=== PATIENT | male | born 1985 | race African-American/Black ===

== ENCOUNTER 2021-10-04 09:52 | Inpatient (IN) | payer MEDICARE ==
[~2021-10-04 09:52] MED LIST: Iopamidol 370 76% 100 ML VIAL ONE
[2021-10-04] MEDS ORDERED: Boostrix 0.5 ML (Tdap) VIAL ONE (09:56)
[2021-10-04 10:08] LABS: #Basophils 0.1 thou/uL (0.0-0.2); #Eosinphils 0.1 thou/uL (0.0-0.7); #Lymphocytes 1.8 thou/uL (1.20-3.40); #Monocytes 0.2 thou/uL (0.11-0.59); #Neutrophils 9.2 thou/uL (1.40-6.50); %Eosinophils 0.8 % (0.0-10.0); %Lymphocytes 16.1 % (21.0-51.0); %Monocytes 1.7 % (0.0-10.0); %Neutrophils 80.3 % (42.0-75.0); Hemoglobin 16.9 g/dL (14.0-18.0); Mean Corpuscular HGB CONC 32.4 g/dL (32.0-36.0); Mean Corpuscular Hemoglobin 32.7 pg (27.0-31.0); Mean Platelet Volume 7.5 fL (7.4-10.4); Platelet Count 235 thou/uL (130-400); RBC Distribution Width 12.3 % (11.5-14.5); Red Blood Cell (RBC) Count 5.16 mill/uL (4.70-6.10); White Blood Cell (WBC) Count 11.4 thou/uL (4.8-10.8)
[2021-10-04] MEDS ORDERED: SUGAMMADEX SODIUM 200 MG/2 ML VIAL ONE (10:09)
[2021-10-04] MEDS ORDERED: Sodium Bicarb 50 MEQ/50 ML Abboject 8.4% SYRINGE ONE (10:09)
[2021-10-04] MEDS ORDERED: fentaNYL Citrate/PF 100 MCG/2 ML SYRINGE ONE ×2 (10:10→14:20)
[2021-10-04] MEDS ORDERED: Ketamine 50 MG/ML (10ML VIAL) ONE (10:10)
[2021-10-04] MEDS ORDERED: Fentanyl 100 MCG/2 ML VIAL ONE ×2 (10:12→16:59)
[2021-10-04] MEDS ORDERED: Ondansetron PF 4 MG/2 ML Vial ONE (10:15)
[2021-10-04 10:20] LABS: INR-International Normal Ratio 0.9; Prothrombin Time 12.1 sec (12.0-14.7)
[2021-10-04] MEDS ORDERED: Dextrose 5% in Water 1,000 ML IV PRN (10:22)
[2021-10-04] MEDS ORDERED: Dextrose 50% Abboject 50 ML SYRINGE SLOW IVP PRN (10:22)
[2021-10-04] MEDS ORDERED: Ondansetron PF 4 MG/2 ML Vial IVP PRN ×3 (10:22→17:05)
[2021-10-04] MEDS ORDERED: hydrALAZINE 20 MG/ML VIAL SLOW IVP PRN (10:22)
[2021-10-04 10:24] LABS: PTT 22.8 sec (22.9-36.1)
[2021-10-04] MEDS ORDERED: HYDROmorphone 10 mg/100 ml CADD IVPB PRN (10:24)
[2021-10-04] MEDS ORDERED: Promethazine HCl 25 MG/ML VIAL IM PRN ×4 (10:24→17:05)
[2021-10-04] MEDS ORDERED: diphenhydrAMINE 25 MG CAP PO PRN ×3 (10:24→17:05)
[2021-10-04] MEDS ORDERED: diphenhydrAMINE 50 MG/ML VIAL IVP PRN ×3 (10:24→17:05)
[2021-10-04] MEDS ORDERED: Naloxone HCl 0.4 mg/ml Vial IV PRN ×3 (10:24→17:05)
[2021-10-04] MEDS ORDERED: diphenhydrAMINE 50 MG/ML VIAL IM PRN ×3 (10:24→17:05)
[2021-10-04 10:30] LABS: ALT (SGPT) 12 U/L (8-55); AST (SGOT) 28 U/L (5-34); Albumin 4.2 g/dL (3.5-5.0); Alcohol Less than 10 mg/dL (Less than 10); Alkaline Phosphatase 63 U/L (40-110); Anion Gap 20 mmol/L (10-20); BUN (Urea Nitrogen) 10 mg/dL (8.9-20.6); Bilirubin, Total 0.7 mg/dL (0.2-1.2); Calc. Creatinine Clearance 0 mL/min (70-130); Calcium 9.2 mg/dL (7.8-10.44); Carbon Dioxide 18 mmol/L (22-29); Chloride 105 mmol/L (98-107); Globulin 3.2 g/dL (2.4-3.5); Glucose 180 mg/dL (70-105); Protein, Total 7.4 g/dL (6.0-8.3); Sodium 139 mmol/L (136-145)
[2021-10-04] MEDS ORDERED: Piperacillin/Tazobactam 3.375 GM in Sodium Chloride 0.9% 100 ML IVPB SCH (10:30)
[2021-10-04] MEDS ORDERED: PCA Communication Order-Pharmacy FS SCH ×2 (10:30→16:15)
[2021-10-04 10:35] LABS: Magnesium 1.7 mg/dL (1.6-2.6)
[2021-10-04] MEDS ORDERED: Dexamethasone 20 MG/5 ML VIAL ONE (10:42)
[2021-10-04] MEDS ORDERED: Succinylcholine 200 MG/10 ml SYRINGE FS ONE (10:42)
[2021-10-04] MEDS ORDERED: Rocuronium Bromide 10 MG/ML (10ML VIAL) ONE (10:42)
[2021-10-04] MEDS ORDERED: ePHEDrine 50 MG/ML VIAL ONE (10:42)
[2021-10-04] MEDS ORDERED: Lidocaine 1% PF 5 ML VIAL ONE (10:42)
[2021-10-04] MEDS ORDERED: Vecuronium 10 MG VIAL ONE (10:42)
[2021-10-04] MEDS ORDERED: PHENYLEPHRINE-NS 100 MCG/ML 10 ML SYRINGE ONE (10:42)
[2021-10-04 10:49] LABS: Phosphorus 1.2 mg/dL (2.3-4.7)
[2021-10-04 10:50] LABS: Bacteria/HPF None Seen HPF (None Seen); Bilirubin Negative (Negative); Blood, Urine 3+ (Negative); Clarity Turbid (Clear); Glucose, Urine (Dipstick) Normal (Negative); Ketone, Urine Negative (Negative); Leukocyte 25 Leu/uL (Negative); Nitrite Negative (Negative); Protein, Urine (Dipstick) 50 mg/dL (Neg-Trace); RBC/HPF Greater than 50 HPF (0-3); Specific Gravity, Urine 1.024 (1.002-1.036); Squamous Epithelial 0-3 HPF (0-3); Urobilinogen Normal mg/dL (Less than 2); WBC/HPF 0-3 HPF (0-3); pH, Urine 6.5 (5.0-9.0)
[2021-10-04] MEDS ORDERED: Iopamidol 15 ML ONE (10:54)
[2021-10-04 11:40] LABS: Amphetamine Not Detected (NotDetected); Barbiturates Screen Not Detected (NotDetected); Benzodiazepine Screen Not Detected (NotDetected); Cocaine Metabolite Screen Detected (NotDetected); Methadone Not Detected (NotDetected); Methamphetamine Not Detected (NotDetected); Opiate Screen Not Detected (NotDetected); Oxycodone Screen Not Detected (NotDetected); Phencyclidine (PCP) Not Detected (NotDetected); THC/Cannabinoid Screen Detected (NotDetected); Tricyclic Screen Not Detected (NotDetected)
[2021-10-04] MEDS ORDERED: IOPAMIDOL ONE (11:41)
[2021-10-04 12:20] LABS: SARS-CoV-2 NAA Rapid Test Not Detected (NotDetected)
[2021-10-04] MEDS ORDERED: Albumin 5% 500 ML ONE ×2 (12:41→13:03)
[2021-10-04] MEDS ORDERED: Piperacillin/Tazobactam 3.375 GM VIAL ONE (14:00)
[2021-10-04] MEDS ORDERED: Dexmedetomidine 200 MCG/2 ML VIAL ONE (14:21)
[2021-10-04] MEDS ORDERED: Magnesium 2 GM/50 ML(in water) 2 GM in Premix Bag 1 BAG IVPB SCH (15:30)
[2021-10-04] MEDS ORDERED: Sodium Phosphate 30 MMOL in Sodium Chloride 0.9% 250 ML 250 ML IVPB SCH (15:30)
[2021-10-04] MEDS ORDERED: HYDROmorphone 2 MG/ML VIAL SLOW IVP PRN (16:15)
[2021-10-04] MEDS ORDERED: Promethazine HCl 25 MG/ML VIAL IVPB PRN (16:15)
[2021-10-04] MEDS ORDERED: fentaNYL Citrate/PF 2,000 MCG in Sodium Chloride 0.9% 60 ML IV PRN (16:15)
[2021-10-04] MEDS ORDERED: Ondansetron HCl/PF 4 MG/2 ML Vial IVP PRN (16:15)
[2021-10-04] MEDS ORDERED: Zolpidem Tartrate 5 MG TAB PO PRN ×2 (16:15→17:05)
[2021-10-04] MEDS ORDERED: Hyoscyamine Sulfate SL 0.125 mg Tablet ONE ×6 (16:33→17:20)
[2021-10-04 16:53] LABS: Lactic Acid 5.8 mmol/L (0.5-2.2)
[2021-10-04] MEDS: Sodium Chloride 0.9% 1,000 ML IV SCH ×3 (17:11→20:36)
[2021-10-04] MEDS ORDERED: Sodium Chloride 0.9% 1,000 ML IV SCH (17:15)
[2021-10-04] MEDS: Hyoscyamine Sulfate SL 0.125 mg Tablet SL SCH ×2 (17:59→23:55)
[2021-10-04] MEDS: Piperacillin/Tazobactam 3.375 GM in Sodium Chloride 0.9% 100 ML IVPB SCH (18:48)
[2021-10-04] MEDS ORDERED: Famotidine 40 MG/4 ML VIAL SLOW IVP SCH (21:00)
[2021-10-04] MEDS ORDERED: Famotidine/PF 20 mg/2ml Vial SLOW IVP SCH (21:00)
[2021-10-04 22:21] LABS: Lactic Acid 5.6 mmol/L (0.5-2.2)
[2021-10-04 22:22] LABS: Anion Gap 17 mmol/L (10-20); BUN (Urea Nitrogen) 13 mg/dL (8.9-20.6); Calc. Creatinine Clearance 0 mL/min (70-130); Calcium 7.7 mg/dL (7.8-10.44); Carbon Dioxide 18 mmol/L (22-29); Chloride 112 mmol/L (98-107); Glucose 126 mg/dL (70-105); Magnesium 2.1 mg/dL (1.6-2.6); Phosphorus 2.4 mg/dL (2.3-4.7); Potassium 4.6 mmol/L (3.5-5.1); Sodium 142 mmol/L (136-145)
[2021-10-05] MEDS ORDERED: Benzocaine 20% Spray 60 ML CAN FS PRN (00:10)
[2021-10-05] MEDS: Piperacillin/Tazobactam 3.375 GM in Sodium Chloride 0.9% 100 ML IVPB SCH ×3 (01:49→17:35)
[2021-10-05] MEDS: Sodium Chloride 0.9% 1,000 ML IV SCH ×3 (04:00→16:02)
[2021-10-05] MEDS: Hyoscyamine Sulfate SL 0.125 mg Tablet SL SCH ×3 (05:40→17:37)
[2021-10-05 07:18] LABS: Hemoglobin 13.4 g/dL (14.0-18.0); Mean Corpuscular HGB CONC 32.6 g/dL (32.0-36.0); Mean Corpuscular Hemoglobin 32.4 pg (27.0-31.0); Mean Corpuscular Volume 99.6 fL (78.0-98.0); Platelet Count 172 thou/uL (130-400); RBC Distribution Width 12.5 % (11.5-14.5); Red Blood Cell (RBC) Count 4.12 mill/uL (4.70-6.10); White Blood Cell (WBC) Count 7.8 thou/uL (4.8-10.8)
[2021-10-05 07:42] LABS: Lactic Acid 2.5 mmol/L (0.5-2.2)
[2021-10-05 07:54] LABS: Anion Gap 13 mmol/L (10-20); BUN (Urea Nitrogen) 15 mg/dL (8.9-20.6); CK (CPK) 849 U/L (30-200); Calc. Creatinine Clearance 85 mL/min (70-130); Calcium 7.7 mg/dL (7.8-10.44); Carbon Dioxide 24 mmol/L (22-29); Chloride 110 mmol/L (98-107); Glucose 93 mg/dL (70-105); Magnesium 1.8 mg/dL (1.6-2.6); Phosphorus 4.3 mg/dL (2.3-4.7); Potassium 4.3 mmol/L (3.5-5.1); Sodium 143 mmol/L (136-145)
[2021-10-05 08:34] LABS: Band 63 % (5-11); Lymphocytes 11 % (21-51); MDiff Complete? YES; Metamyelocyte 17 % (0-0); Monocytes 2 % (0-10); Neutrophil 6 % (42-75); Platelet Morphology Comment Appears Adequate; Polychromasia SLIGHT = 2-3 cells (100X) (0-2/hpf); Reactive Lymphocytes 1 % (0-10); Reflex for Review?? YES; Vacuoles SLIGHT
[2021-10-05] MEDS ORDERED: Sodium Chloride 0.9% (PF) 10 ML VIAL FS PRN (08:45)
[2021-10-05] MEDS ORDERED: Magnesium 2 GM/50 ML(in water) 2 GM in Premix Bag 1 BAG IVPB SCH (08:45)
[2021-10-05] MEDS: Pantoprazole 40 MG VIAL IVP SCH (08:51)
[2021-10-06] MEDS: Hyoscyamine Sulfate SL 0.125 mg Tablet SL SCH ×4 (00:31→18:08)
[2021-10-06] MEDS: Sodium Chloride 0.9% 1,000 ML IV SCH ×3 (00:35→18:08)
[2021-10-06] MEDS: Piperacillin/Tazobactam 3.375 GM in Sodium Chloride 0.9% 100 ML IVPB SCH ×3 (02:45→18:07)
[2021-10-06 07:08] LABS: Hemoglobin 12.6 g/dL (14.0-18.0); Mean Corpuscular HGB CONC 32.5 g/dL (32.0-36.0); Mean Corpuscular Hemoglobin 32.3 pg (27.0-31.0); Mean Corpuscular Volume 99.3 fL (78.0-98.0); Mean Platelet Volume 8.2 fL (7.4-10.4); Platelet Count 151 thou/uL (130-400); RBC Distribution Width 12.2 % (11.5-14.5); White Blood Cell (WBC) Count 13.7 thou/uL (4.8-10.8)
[2021-10-06 07:34] LABS: Anion Gap 13 mmol/L (10-20); BUN (Urea Nitrogen) 12 mg/dL (8.9-20.6); Calc. Creatinine Clearance 103 mL/min (70-130); Calcium 8.1 mg/dL (7.8-10.44); Carbon Dioxide 22 mmol/L (22-29); Chloride 107 mmol/L (98-107); Glucose 96 mg/dL (70-105); Magnesium 2.4 mg/dL (1.6-2.6); Potassium 4.1 mmol/L (3.5-5.1); Sodium 138 mmol/L (136-145)
[2021-10-06] MEDS ORDERED: Sodium Phosphate 30 MMOL in Sodium Chloride 0.9% 250 ML 250 ML IVPB SCH (08:00)
[2021-10-06] MEDS: Pantoprazole 40 MG VIAL IVP SCH (09:37)
[2021-10-06 11:28] LABS: Band 54 % (5-11); Eosinophils 1 % (0-10); Lymphocytes 2 % (21-51); Metamyelocyte 3 % (0-0); Monocytes 4 % (0-10); Neutrophil 36 % (42-75)
[2021-10-06 11:29] LABS: Dohle Bodies SLIGHT; MDiff Complete? YES; Platelet Morphology Comment Appears Adequate; Polychromasia SLIGHT = 2-3 cells (100X) (0-2/hpf)
[2021-10-07] MEDS: Hyoscyamine Sulfate SL 0.125 mg Tablet SL SCH ×4 (00:22→18:48)
[2021-10-07] MEDS: Sodium Chloride 0.9% 1,000 ML IV SCH ×3 (01:25→18:49)
[2021-10-07] MEDS: Piperacillin/Tazobactam 3.375 GM in Sodium Chloride 0.9% 100 ML IVPB SCH ×3 (01:29→18:48)
[2021-10-07] MEDS ORDERED: Ketorolac Tromethamine 30 MG/ML VIAL IVP SCH (03:45)
[2021-10-07 06:03] LABS: Phosphorus 2.4 mg/dL (2.3-4.7)
[2021-10-07 06:09] LABS: Hemoglobin 12.2 g/dL (14.0-18.0); Mean Corpuscular HGB CONC 32.2 g/dL (32.0-36.0); Mean Corpuscular Volume 99.2 fL (78.0-98.0); Mean Platelet Volume 8.1 fL (7.4-10.4); Platelet Count 152 thou/uL (130-400); RBC Distribution Width 12.4 % (11.5-14.5); Red Blood Cell (RBC) Count 3.81 mill/uL (4.70-6.10); White Blood Cell (WBC) Count 13.6 thou/uL (4.8-10.8)
[2021-10-07 06:15] LABS: Anion Gap 12 mmol/L (10-20); BUN (Urea Nitrogen) 17 mg/dL (8.9-20.6); Calc. Creatinine Clearance 112 mL/min (70-130); Calcium 8.7 mg/dL (7.8-10.44); Carbon Dioxide 21 mmol/L (22-29); Chloride 107 mmol/L (98-107); Glucose 82 mg/dL (70-105); Magnesium 2.3 mg/dL (1.6-2.6); Sodium 136 mmol/L (136-145)
[2021-10-07 06:23] LABS: MDiff Complete? YES
[2021-10-07 06:24] LABS: Band 25 % (5-11); Lymphocytes 2 % (21-51); Monocytes 5 % (0-10); Neutrophil 68 % (42-75)
[2021-10-07] MEDS: Pantoprazole 40 MG VIAL IVP SCH ×2 (09:50→21:02)
[2021-10-08] MEDS: Hyoscyamine Sulfate SL 0.125 mg Tablet SL SCH ×4 (00:29→18:35)
[2021-10-08] MEDS: Piperacillin/Tazobactam 3.375 GM in Sodium Chloride 0.9% 100 ML IVPB SCH ×3 (02:35→18:35)
[2021-10-08] MEDS: Sodium Chloride 0.9% 1,000 ML IV SCH ×3 (04:30→20:23)
[2021-10-08 06:37] LABS: Band 9 % (5-11); Hemoglobin 12.1 g/dL (14.0-18.0); Lymphocytes 7 % (21-51); MDiff Complete? YES; Mean Corpuscular Hemoglobin 32.1 pg (27.0-31.0); Mean Platelet Volume 8.3 fL (7.4-10.4); Monocytes 3 % (0-10); Neutrophil 81 % (42-75); Platelet Count 158 thou/uL (130-400); RBC Distribution Width 12.3 % (11.5-14.5); Red Blood Cell (RBC) Count 3.76 mill/uL (4.70-6.10); White Blood Cell (WBC) Count 8.7 thou/uL (4.8-10.8)
[2021-10-08 06:40] LABS: Anion Gap 9 mmol/L (10-20); BUN (Urea Nitrogen) 20 mg/dL (8.9-20.6); Calc. Creatinine Clearance 119 mL/min (70-130); Calcium 8.3 mg/dL (7.8-10.44); Carbon Dioxide 24 mmol/L (22-29); Chloride 109 mmol/L (98-107); Glucose 97 mg/dL (70-105); Sodium 138 mmol/L (136-145)
[2021-10-08] MEDS: Pantoprazole 40 MG VIAL IVP SCH ×2 (10:15→20:45)
[2021-10-08] MEDS ORDERED: Cepastat Lozenges 1 LOZ PO PRN (10:19)
[2021-10-08] MEDS ORDERED: Chloraseptic Spray 180 ml Bottle PO PRN (10:19)
[2021-10-08] MEDS ORDERED: Iopamidol-370 76% 500 ML 1 ML ONE (10:37)
[2021-10-08] MEDS ORDERED: GASTROGRAFIN 30 ML BOT ONE (10:37)
[2021-10-08 16:57] LABS: Hemoglobin 12.3 g/dL (14.0-18.0); Platelet Count 189 thou/uL (130-400)
[2021-10-08] MEDS: HYDROmorphone 10 mg/100 ml CADD IVPB PRN (17:42)
[2021-10-08] MEDS: Heparin 10,000 UNITS/ 10 ML VIAL SLOW IVP SCH (18:19)
[2021-10-08] MEDS: Heparin 25,000 units/D5W 500 ML IVPB SCH (18:26)
[2021-10-09] MEDS: Heparin 10,000 UNITS/ 10 ML VIAL SLOW IVP SCH ×2 (00:42→18:06)
[2021-10-09] MEDS: Hyoscyamine Sulfate SL 0.125 mg Tablet SL SCH ×5 (01:06→23:09)
[2021-10-09] MEDS: Piperacillin/Tazobactam 3.375 GM in Sodium Chloride 0.9% 100 ML IVPB SCH ×3 (02:23→18:25)
[2021-10-09] MEDS: Sodium Chloride 0.9% 1,000 ML IV SCH ×3 (02:23→18:04)
[2021-10-09 06:35] LABS: Hemoglobin 11.5 g/dL (14.0-18.0); Mean Corpuscular HGB CONC 32.3 g/dL (32.0-36.0); Mean Corpuscular Hemoglobin 32.1 pg (27.0-31.0); Mean Corpuscular Volume 99.4 fL (78.0-98.0); Mean Platelet Volume 8.3 fL (7.4-10.4); Platelet Count 194 thou/uL (130-400); RBC Distribution Width 12.3 % (11.5-14.5); Red Blood Cell (RBC) Count 3.57 mill/uL (4.70-6.10); White Blood Cell (WBC) Count 6.6 thou/uL (4.8-10.8)
[2021-10-09 06:55] LABS: Anion Gap 11 mmol/L (10-20); BUN (Urea Nitrogen) 16 mg/dL (8.9-20.6); Calc. Creatinine Clearance 107 mL/min (70-130); Calcium 8.2 mg/dL (7.8-10.44); Carbon Dioxide 23 mmol/L (22-29); Chloride 107 mmol/L (98-107); Glucose 91 mg/dL (70-105); Potassium 3.6 mmol/L (3.5-5.1); Sodium 137 mmol/L (136-145)
[2021-10-09 07:50] LABS: Band 21 % (5-11); Eosinophils 1 % (0-10); Lymphocytes 14 % (21-51); MDiff Complete? YES; Monocytes 19 % (0-10); Neutrophil 44 % (42-75); Nucleated RBC 3 % (0); Platelet Morphology Comment Appears Adequate; RBC Morphology Normal; Reactive Lymphocytes 1 % (0-10)
[2021-10-09] MEDS ORDERED: Enoxaparin Sodium 40 MG/0.4 ML SYRINGE SC SCH (09:00)
[2021-10-09] MEDS: Pantoprazole 40 MG VIAL IVP SCH ×2 (10:15→20:59)
[2021-10-09] MEDS ORDERED: HYDROmorphone 0.5 MG/0.5 ML SYRINGE ONE (12:37)
[2021-10-09] MEDS ORDERED: fentaNYL Citrate/PF 100 MCG/2 ML SYRINGE ONE (12:37)
[2021-10-09] MEDS ORDERED: PHENYLEPHRINE-NS 100 MCG/ML 10 ML SYRINGE ONE (13:10)
[2021-10-09] MEDS ORDERED: Succinylcholine 200 MG/10 ml SYRINGE FS ONE (13:10)
[2021-10-09] MEDS ORDERED: Dexamethasone 20 MG/5 ML VIAL ONE (13:10)
[2021-10-09] MEDS ORDERED: Rocuronium Bromide 10 MG/ML (10ML VIAL) ONE (13:10)
[2021-10-09] MEDS ORDERED: Ondansetron PF 4 MG/2 ML Vial ONE (13:10)
[2021-10-09] MEDS ORDERED: Lidocaine 1% PF 5 ML VIAL ONE (13:10)
[2021-10-09] MEDS ORDERED: PROPOFOL 200 MG/20 ML VIAL ONE (13:10)
[2021-10-09] MEDS ORDERED: Glycopyrrolate 0.2 MG/ML 5 ML SYRINGE ONE (13:10)
[2021-10-09] MEDS ORDERED: Ondansetron HCl/PF 4 MG/2 ML Vial IVP PRN (14:36)
[2021-10-09] MEDS ORDERED: HYDROmorphone 2 MG/ML VIAL SLOW IVP PRN (14:36)
[2021-10-09] MEDS ORDERED: Promethazine HCl 25 MG/ML VIAL IVPB PRN (14:36)
[2021-10-09] MEDS ORDERED: Promethazine HCl 25 MG/ML VIAL IM PRN (14:36)
[2021-10-09] MEDS ORDERED: Fentanyl 100 MCG/2 ML VIAL ONE ×2 (15:44→16:12)
[2021-10-09] MEDS: Heparin 25,000 units/D5W 500 ML IVPB SCH (18:11)
[2021-10-10] MEDS: Piperacillin/Tazobactam 3.375 GM in Sodium Chloride 0.9% 100 ML IVPB SCH ×4 (01:35→23:21)
[2021-10-10 03:16] LABS: Band 39 % (5-11); Hemoglobin 13.1 g/dL (14.0-18.0); Lymphocytes 12 % (21-51); MDiff Complete? YES; Mean Corpuscular HGB CONC 32.2 g/dL (32.0-36.0); Mean Corpuscular Hemoglobin 31.8 pg (27.0-31.0); Mean Corpuscular Volume 98.9 fL (78.0-98.0); Metamyelocyte 2 % (0-0); Monocytes 12 % (0-10); Neutrophil 35 % (42-75); Platelet Count 222 thou/uL (130-400); Platelet Morphology Comment Appears Adequate; RBC Distribution Width 12.5 % (11.5-14.5); RBC Morphology Normal; Red Blood Cell (RBC) Count 4.13 mill/uL (4.70-6.10); White Blood Cell (WBC) Count 10.2 thou/uL (4.8-10.8)
[2021-10-10 03:26] LABS: Anion Gap 15 mmol/L (10-20); BUN (Urea Nitrogen) 15 mg/dL (8.9-20.6); Calc. Creatinine Clearance 101 mL/min (70-130); Calcium 8.2 mg/dL (7.8-10.44); Carbon Dioxide 25 mmol/L (22-29); Chloride 105 mmol/L (98-107); Glucose 100 mg/dL (70-105); Magnesium 1.9 mg/dL (1.6-2.6); Potassium 3.6 mmol/L (3.5-5.1); Sodium 141 mmol/L (136-145)
[2021-10-10] MEDS: Hyoscyamine Sulfate SL 0.125 mg Tablet SL SCH ×4 (05:21→23:20)
[2021-10-10] MEDS: HYDROmorphone 10 mg/100 ml CADD IVPB PRN (06:06)
[2021-10-10] MEDS: Sodium Chloride 0.9% 1,000 ML IV SCH ×3 (06:34→23:26)
[2021-10-10] MEDS: Pantoprazole 40 MG VIAL IVP SCH ×2 (08:35→23:20)
[2021-10-10] MEDS: Heparin 25,000 units/D5W 500 ML IVPB SCH (08:59)
[2021-10-10 18:54] LABS: Hemoglobin 12.5 g/dL (14.0-18.0); Platelet Count 240 thou/uL (130-400)
[2021-10-11] MEDS: Heparin 25,000 units/D5W 500 ML IVPB SCH ×2 (04:07→21:00)
[2021-10-11] MEDS: Hyoscyamine Sulfate SL 0.125 mg Tablet SL SCH ×4 (06:30→23:14)
[2021-10-11] MEDS: Heparin 10,000 UNITS/ 10 ML VIAL SLOW IVP SCH ×2 (08:56→15:48)
[2021-10-11] MEDS: Pantoprazole 40 MG VIAL IVP SCH ×2 (08:57→21:00)
[2021-10-11] MEDS: Piperacillin/Tazobactam 3.375 GM in Sodium Chloride 0.9% 100 ML IVPB SCH ×3 (08:57→23:14)
[2021-10-11] MEDS ORDERED: Sodium Chloride 0.9% 1,000 ML IV SCH ×2 (11:45→12:45)
[2021-10-11] MEDS: Sodium Chloride 0.9% 1,000 ML IV SCH ×2 (13:30→17:24)
[2021-10-12] MEDS: Sodium Chloride 0.9% 1,000 ML IV SCH ×4 (01:55→22:50)
[2021-10-12] MEDS: Hyoscyamine Sulfate SL 0.125 mg Tablet SL SCH ×3 (05:23→18:00)
[2021-10-12 05:45] LABS: Hemoglobin 10.9 g/dL (14.0-18.0)
[2021-10-12 06:03] LABS: Anion Gap 12 mmol/L (10-20); BUN (Urea Nitrogen) 14 mg/dL (8.9-20.6); Calc. Creatinine Clearance 126 mL/min (70-130); Calcium 8.2 mg/dL (7.8-10.44); Carbon Dioxide 25 mmol/L (22-29); Chloride 108 mmol/L (98-107); Glucose 87 mg/dL (70-105); Potassium 3.2 mmol/L (3.5-5.1); Sodium 142 mmol/L (136-145)
[2021-10-12 06:46] LABS: PTT Greater than 220.0 sec (22.9-36.1)
[2021-10-12] MEDS ORDERED: Potassium Chloride 20 MEQ in Premix Bag 1 BAG IVPB SCH (07:30)
[2021-10-12 07:43] LABS: Magnesium 2.1 mg/dL (1.6-2.6); Phosphorus 2.4 mg/dL (2.3-4.7)
[2021-10-12] MEDS: Heparin 10,000 UNITS/ 10 ML VIAL SLOW IVP SCH ×3 (08:56→21:51)
[2021-10-12] MEDS: Piperacillin/Tazobactam 3.375 GM in Sodium Chloride 0.9% 100 ML IVPB SCH ×2 (08:57→15:33)
[2021-10-12] MEDS: Pantoprazole 40 MG VIAL IVP SCH ×2 (08:57→21:26)
[2021-10-12] MEDS ORDERED: MD-Gastroview 120 ML BOT ONE (09:05)
[2021-10-12] MEDS: Heparin 25,000 units/D5W 500 ML IVPB SCH (13:48)
[2021-10-12] MEDS: traMADol HCl 50 MG TAB PO SCH ×2 (15:33→21:26)
[2021-10-12 15:48] LABS: INR-International Normal Ratio 1.1; Prothrombin Time 14.2 sec (12.0-14.7)
[2021-10-12 15:49] LABS: PTT 63.6 sec (22.9-36.1)
[2021-10-12] MEDS: Acetaminophen 500 MG TAB PO SCH (17:49)
[2021-10-13] MEDS: Piperacillin/Tazobactam 3.375 GM in Sodium Chloride 0.9% 100 ML IVPB SCH ×3 (00:27→16:09)
[2021-10-13] MEDS: Acetaminophen 500 MG TAB PO SCH ×4 (00:28→17:40)
[2021-10-13] MEDS: Hyoscyamine Sulfate SL 0.125 mg Tablet SL SCH ×4 (00:36→17:40)
[2021-10-13 04:36] LABS: Hemoglobin 11.1 g/dL (14.0-18.0)
[2021-10-13 04:37] LABS: PTT 121.5 sec (22.9-36.1)
[2021-10-13 05:01] LABS: Anion Gap 12 mmol/L (10-20); BUN (Urea Nitrogen) 11 mg/dL (8.9-20.6); Calc. Creatinine Clearance 121 mL/min (70-130); Calcium 8.4 mg/dL (7.8-10.44); Carbon Dioxide 24 mmol/L (22-29); Chloride 107 mmol/L (98-107); Glucose 96 mg/dL (70-105); Phosphorus 3.5 mg/dL (2.3-4.7); Potassium 3.1 mmol/L (3.5-5.1); Sodium 140 mmol/L (136-145)
[2021-10-13] MEDS: traMADol HCl 50 MG TAB PO SCH ×4 (05:15→21:22)
[2021-10-13] MEDS: Sodium Chloride 0.9% 1,000 ML IV SCH (05:39)
[2021-10-13] MEDS ORDERED: Potassium Phosphate 30 MMOL in Sodium Chloride 0.9% 250 ML 250 ML IVPB SCH (05:45)
[2021-10-13] MEDS: Heparin 25,000 units/D5W 500 ML IVPB SCH ×2 (06:35→20:21)
[2021-10-13] MEDS ORDERED: Potassium Chloride 20 MEQ TAB PO SCH (06:45)
[2021-10-13] MEDS: Pantoprazole 40 MG VIAL IVP SCH (08:12)
[2021-10-13] MEDS ORDERED: Apixaban 2.5 MG TAB PO SCH (13:15)
[2021-10-13] MEDS: Apixaban 2.5 MG TAB PO SCH (20:20)
[2021-10-14] MEDS: Hyoscyamine Sulfate SL 0.125 mg Tablet SL SCH ×4 (00:51→18:15)
[2021-10-14] MEDS: Acetaminophen 500 MG TAB PO SCH ×4 (00:51→18:15)
[2021-10-14] MEDS: Piperacillin/Tazobactam 3.375 GM in Sodium Chloride 0.9% 100 ML IVPB SCH ×3 (00:52→16:14)
[2021-10-14] MEDS: traMADol HCl 50 MG TAB PO SCH ×4 (04:50→22:44)
[2021-10-14 06:42] LABS: Band 10 % (5-11); Eosinophils 1 % (0-10); Hemoglobin 11.3 g/dL (14.0-18.0); Hypochromia SLIGHT = 6-15 cells (100X) (0-5/hpf); Lymphocytes 9 % (21-51); MDiff Complete? YES; Mean Corpuscular HGB CONC 31.3 g/dL (32.0-36.0); Mean Corpuscular Hemoglobin 31.5 pg (27.0-31.0); Monocytes 15 % (0-10); Neutrophil 65 % (42-75); Platelet Count 258 thou/uL (130-400); Platelet Morphology Comment Appears Adequate; RBC Distribution Width 12.9 % (11.5-14.5); Red Blood Cell (RBC) Count 3.58 mill/uL (4.70-6.10); White Blood Cell (WBC) Count 11.8 thou/uL (4.8-10.8)
[2021-10-14] MEDS: Apixaban 2.5 MG TAB PO SCH ×2 (08:27→20:17)
[2021-10-14] MEDS ORDERED: ISOVUE-370 76%-LOCM 1 ML ONE (11:46)
[2021-10-14] MEDS: Senokot S 8.6-50 MG TAB PO SCH ×2 (20:17→20:21)
[2021-10-15] MEDS: Hyoscyamine Sulfate SL 0.125 mg Tablet SL SCH ×4 (00:19→17:50)
[2021-10-15] MEDS: Piperacillin/Tazobactam 3.375 GM in Sodium Chloride 0.9% 100 ML IVPB SCH (00:19)
[2021-10-15] MEDS: Acetaminophen 500 MG TAB PO SCH ×4 (00:19→17:50)
[2021-10-15] MEDS: traMADol HCl 50 MG TAB PO SCH ×5 (04:54→21:05)
[2021-10-15 06:09] LABS: Band 3 % (5-11); Hemoglobin 10.7 g/dL (14.0-18.0); Hypochromia SLIGHT = 6-15 cells (100X) (0-5/hpf); MDiff Complete? YES; Mean Corpuscular HGB CONC 32.6 g/dL (32.0-36.0); Mean Corpuscular Hemoglobin 31.8 pg (27.0-31.0); Mean Corpuscular Volume 97.8 fL (78.0-98.0); Mean Platelet Volume 7.2 fL (7.4-10.4); Monocytes 26 % (0-10); Neutrophil 71 % (42-75); Platelet Count 375 thou/uL (130-400); Platelet Morphology Comment Appears Adequate; RBC Distribution Width 12.8 % (11.5-14.5); Red Blood Cell (RBC) Count 3.35 mill/uL (4.70-6.10)
[2021-10-15 06:17] LABS: Anion Gap 14 mmol/L (10-20); BUN (Urea Nitrogen) 16 mg/dL (8.9-20.6); Calc. Creatinine Clearance 122 mL/min (70-130); Carbon Dioxide 23 mmol/L (22-29); Glucose 72 mg/dL (70-105); Magnesium 1.8 mg/dL (1.6-2.6); Phosphorus 3.1 mg/dL (2.3-4.7); Potassium 3.5 mmol/L (3.5-5.1); Sodium 134 mmol/L (136-145)
[2021-10-15 06:18] LABS: Chloride 101 mmol/L (98-107)
[2021-10-15] MEDS: Apixaban 2.5 MG TAB PO SCH ×2 (07:57→21:04)
[2021-10-15] MEDS ORDERED: Magnesium 2 GM/50 ML(in water) 2 GM in Premix Bag 1 BAG IVPB SCH (08:00)
[2021-10-15] MEDS ORDERED: Potassium Phosphate 30 MMOL, Magnesium Sulfate 2 GM in Sodium Chloride 0.9% 250 ML 250 ML IVPB SCH (08:00)
[2021-10-15] MEDS: Polyethylene Glycol 3350 17 GM Packet PO SCH (10:33)
[2021-10-15] MEDS: Senokot S 8.6-50 MG TAB PO SCH ×2 (10:33→21:04)
[2021-10-15] MEDS ORDERED: ISOVUE-370 76%-LOCM 1 ML ONE (12:11)
[2021-10-16] MEDS: Acetaminophen 500 MG TAB PO SCH ×4 (01:10→18:22)
[2021-10-16] MEDS: Hyoscyamine Sulfate SL 0.125 mg Tablet SL SCH ×4 (01:10→18:22)
[2021-10-16] MEDS: traMADol HCl 50 MG TAB PO SCH ×4 (04:22→21:36)
[2021-10-16] MEDS: Polyethylene Glycol 3350 17 GM Packet PO SCH (10:04)
[2021-10-16] MEDS: Senokot S 8.6-50 MG TAB PO SCH (10:05)
[2021-10-16] MEDS: Apixaban 2.5 MG TAB PO SCH (21:36)
[2021-10-17] MEDS: traMADol HCl 50 MG TAB PO SCH ×5 (03:59→23:44)
[2021-10-17] MEDS: Acetaminophen 500 MG TAB PO SCH ×6 (06:08→23:44)
[2021-10-17] MEDS: Hyoscyamine Sulfate SL 0.125 mg Tablet SL SCH ×6 (06:08→23:43)
[2021-10-17 06:18] LABS: Hemoglobin 10.4 g/dL (14.0-18.0); Mean Corpuscular HGB CONC 32.4 g/dL (32.0-36.0); Mean Corpuscular Hemoglobin 31.6 pg (27.0-31.0); Mean Corpuscular Volume 97.5 fL (78.0-98.0); Mean Platelet Volume 6.6 fL (7.4-10.4); Platelet Count 472 thou/uL (130-400); Red Blood Cell (RBC) Count 3.28 mill/uL (4.70-6.10); White Blood Cell (WBC) Count 11.6 thou/uL (4.8-10.8)
[2021-10-17 06:43] LABS: Anion Gap 9 mmol/L (10-20); BUN (Urea Nitrogen) 7 mg/dL (8.9-20.6); Calc. Creatinine Clearance 129 mL/min (70-130); Carbon Dioxide 27 mmol/L (22-29); Chloride 98 mmol/L (98-107); Glucose 100 mg/dL (70-105); Magnesium 1.8 mg/dL (1.6-2.6); Phosphorus 2.7 mg/dL (2.3-4.7); Potassium 3.1 mmol/L (3.5-5.1); Sodium 131 mmol/L (136-145)
[2021-10-17 06:44] LABS: Band 12 % (5-11); Eosinophils 2 % (0-10); Lymphocytes 17 % (21-51); MDiff Complete? YES; Monocytes 17 % (0-10); Neutrophil 52 % (42-75)
[2021-10-17] MEDS ORDERED: Potassium Chloride 20 MEQ TAB PO SCH (08:00)
[2021-10-17] MEDS ORDERED: PHOS-NAK 1 PKT PACK PO SCH (08:00)
[2021-10-17] MEDS ORDERED: Magnesium 2 GM/50 ML(in water) 2 GM in Premix Bag 1 BAG IVPB SCH (08:00)
[2021-10-17] MEDS: Apixaban 2.5 MG TAB PO SCH ×3 (10:36→23:01)
[2021-10-18] MEDS: traMADol HCl 50 MG TAB PO SCH ×4 (04:25→21:57)
[2021-10-18] MEDS: Acetaminophen 500 MG TAB PO SCH ×4 (06:21→23:34)
[2021-10-18] MEDS: Hyoscyamine Sulfate SL 0.125 mg Tablet SL SCH ×4 (06:21→23:34)
[2021-10-18] MEDS: traMADol HCl 50 MG TAB PO PRN (09:10)
[2021-10-18] MEDS: Cyclobenzaprine 10 MG TAB PO PRN ×2 (09:10→20:39)
[2021-10-19] MEDS: traMADol HCl 50 MG TAB PO SCH ×4 (05:25→21:30)
[2021-10-19] MEDS: Acetaminophen 500 MG TAB PO SCH ×4 (05:25→23:31)
[2021-10-19] MEDS: Hyoscyamine Sulfate SL 0.125 mg Tablet SL SCH ×4 (05:25→23:31)
[2021-10-19 05:44] LABS: #Basophils 0.1 thou/uL (0.0-0.2); #Eosinphils 0.1 thou/uL (0.0-0.7); #Lymphocytes 1.7 thou/uL (1.20-3.40); #Monocytes 2.3 thou/uL (0.11-0.59); #Neutrophils 15.2 thou/uL (1.40-6.50); %Basophils 0.6 % (0.0-1.0); %Eosinophils 0.5 % (0.0-10.0); %Lymphocytes 8.6 % (21.0-51.0); %Monocytes 11.7 % (0.0-10.0); %Neutrophils 78.6 % (42.0-75.0); Hemoglobin 11.7 g/dL (14.0-18.0); Mean Corpuscular HGB CONC 32.8 g/dL (32.0-36.0); Mean Corpuscular Volume 97.5 fL (78.0-98.0); Mean Platelet Volume 6.5 fL (7.4-10.4); Platelet Count 547 thou/uL (130-400); RBC Distribution Width 12.9 % (11.5-14.5); Red Blood Cell (RBC) Count 3.65 mill/uL (4.70-6.10); White Blood Cell (WBC) Count 19.3 thou/uL (4.8-10.8)
[2021-10-19 06:21] LABS: Anion Gap 13 mmol/L (10-20); BUN (Urea Nitrogen) 9 mg/dL (8.9-20.6); Calc. Creatinine Clearance 119 mL/min (70-130); Calcium 8.5 mg/dL (7.8-10.44); Carbon Dioxide 25 mmol/L (22-29); Chloride 96 mmol/L (98-107); Glucose 95 mg/dL (70-105); Magnesium 1.8 mg/dL (1.6-2.6); Phosphorus 3.6 mg/dL (2.3-4.7); Potassium 4.6 mmol/L (3.5-5.1); Sodium 129 mmol/L (136-145)
[2021-10-19] MEDS ORDERED: Magnesium 2 GM/50 ML(in water) 2 GM in Premix Bag 1 BAG IVPB SCH (07:45)
[2021-10-19] MEDS ORDERED: Sodium Phosphate 15 MMOL in Sodium Chloride 0.9% 250 ML 250 ML IVPB SCH (07:45)
[2021-10-19] MEDS ORDERED: Iopamidol 370 76% 100 ML VIAL ONE (08:00)
[2021-10-19] MEDS ORDERED: Piperacillin/Tazobactam 3.375 GM in Sodium Chloride 0.9% 100 ML IVPB SCH (12:00)
[2021-10-19] MEDS: Piperacillin/Tazobactam 3.375 GM in Sodium Chloride 0.9% 100 ML IVPB SCH ×2 (15:54→23:31)
[2021-10-19] MEDS: Apixaban 2.5 MG TAB PO SCH (21:30)
[2021-10-20] MEDS: traMADol HCl 50 MG TAB PO SCH ×4 (05:50→22:06)
[2021-10-20] MEDS: Acetaminophen 500 MG TAB PO SCH ×3 (05:50→17:24)
[2021-10-20] MEDS: Hyoscyamine Sulfate SL 0.125 mg Tablet SL SCH ×3 (05:50→17:24)
[2021-10-20] MEDS: Piperacillin/Tazobactam 3.375 GM in Sodium Chloride 0.9% 100 ML IVPB SCH ×2 (08:45→17:23)
[2021-10-20 08:58] LABS: Anion Gap 15 mmol/L (10-20); BUN (Urea Nitrogen) 9 mg/dL (8.9-20.6); Calc. Creatinine Clearance 116 mL/min (70-130); Calcium 8.9 mg/dL (7.8-10.44); Carbon Dioxide 23 mmol/L (22-29); Chloride 96 mmol/L (98-107); Glucose 102 mg/dL (70-105); Magnesium 2.1 mg/dL (1.6-2.6); Phosphorus 3.1 mg/dL (2.3-4.7); Potassium 4.2 mmol/L (3.5-5.1); Sodium 130 mmol/L (136-145)
[2021-10-20 10:07] LABS: #Basophils 0.1 thou/uL (0.0-0.2); #Eosinphils 0.1 thou/uL (0.0-0.7); #Lymphocytes 0.9 thou/uL (1.20-3.40); #Monocytes 1.5 thou/uL (0.11-0.59); #Neutrophils 10.1 thou/uL (1.40-6.50); %Basophils 0.5 % (0.0-1.0); %Eosinophils 1.1 % (0.0-10.0); %Lymphocytes 6.7 % (21.0-51.0); %Monocytes 11.5 % (0.0-10.0); %Neutrophils 80.1 % (42.0-75.0); Hemoglobin 10.9 g/dL (14.0-18.0); Mean Corpuscular HGB CONC 30.4 g/dL (32.0-36.0); Mean Corpuscular Hemoglobin 30.3 pg (27.0-31.0); Mean Corpuscular Volume 99.7 fL (78.0-98.0); Mean Platelet Volume 6.3 fL (7.4-10.4); Platelet Count 570 thou/uL (130-400); RBC Distribution Width 13.1 % (11.5-14.5); White Blood Cell (WBC) Count 12.6 thou/uL (4.8-10.8)
[2021-10-20] MEDS ORDERED: fentaNYL Citrate/PF 100 MCG/2 ML SYRINGE ONE (11:02)
[2021-10-20] MEDS ORDERED: Iopamidol 15 ML ONE (11:05)
[2021-10-20] MEDS ORDERED: IOPAMIDOL ONE (11:52)
[2021-10-20] MEDS ORDERED: Fentanyl 100 MCG/2 ML VIAL ONE (12:45)
[2021-10-20] MEDS: Saccharomyces boulardii 250 MG CAP PO SCH (17:23)
[2021-10-21] MEDS: Hyoscyamine Sulfate SL 0.125 mg Tablet SL SCH ×5 (00:02→23:52)
[2021-10-21] MEDS: Piperacillin/Tazobactam 3.375 GM in Sodium Chloride 0.9% 100 ML IVPB SCH ×4 (00:02→23:52)
[2021-10-21] MEDS: Acetaminophen 500 MG TAB PO SCH ×5 (00:02→23:52)
[2021-10-21] MEDS: traMADol HCl 50 MG TAB PO SCH ×4 (03:52→21:26)
[2021-10-21 06:13] LABS: #Basophils 0.1 thou/uL (0.0-0.2); #Lymphocytes 1.3 thou/uL (1.20-3.40); #Neutrophils 7.7 thou/uL (1.40-6.50); %Basophils 0.8 % (0.0-1.0); %Eosinophils 0.4 % (0.0-10.0); %Lymphocytes 12.5 % (21.0-51.0); %Monocytes 9.9 % (0.0-10.0); %Neutrophils 76.4 % (42.0-75.0); Hemoglobin 10.9 g/dL (14.0-18.0); Mean Corpuscular Hemoglobin 31.9 pg (27.0-31.0); Mean Platelet Volume 6.8 fL (7.4-10.4); Platelet Count 547 thou/uL (130-400); RBC Distribution Width 13.3 % (11.5-14.5); Red Blood Cell (RBC) Count 3.42 mill/uL (4.70-6.10); White Blood Cell (WBC) Count 10.1 thou/uL (4.8-10.8)
[2021-10-21 06:20] LABS: Anion Gap 17 mmol/L (10-20); BUN (Urea Nitrogen) 10 mg/dL (8.9-20.6); Calc. Creatinine Clearance 121 mL/min (70-130); Calcium 8.7 mg/dL (7.8-10.44); Carbon Dioxide 23 mmol/L (22-29); Chloride 99 mmol/L (98-107); Glucose 100 mg/dL (70-105); Potassium 5.1 mmol/L (3.5-5.1); Sodium 134 mmol/L (136-145)
[2021-10-21] MEDS ORDERED: Sodium Chloride 0.9% 1,000 ML IV SCH (08:00)
[2021-10-21] MEDS: Saccharomyces boulardii 250 MG CAP PO SCH (09:03)
[2021-10-21] MEDS: Apixaban 5 MG TAB PO SCH ×2 (09:03→20:34)
[2021-10-22] MEDS: traMADol HCl 50 MG TAB PO SCH ×4 (04:41→23:54)
[2021-10-22 06:12] LABS: #Basophils 0.1 thou/uL (0.0-0.2); #Eosinphils 0.2 thou/uL (0.0-0.7); #Lymphocytes 1.7 thou/uL (1.20-3.40); #Neutrophils 7.1 thou/uL (1.40-6.50); %Basophils 0.6 % (0.0-1.0); %Lymphocytes 16.7 % (21.0-51.0); %Monocytes 9.6 % (0.0-10.0); %Neutrophils 71.2 % (42.0-75.0); Hemoglobin 10.7 g/dL (14.0-18.0); Mean Corpuscular HGB CONC 31.7 g/dL (32.0-36.0); Mean Corpuscular Hemoglobin 30.9 pg (27.0-31.0); Mean Corpuscular Volume 97.5 fL (78.0-98.0); Mean Platelet Volume 6.9 fL (7.4-10.4); Platelet Count 707 thou/uL (130-400); RBC Distribution Width 13.2 % (11.5-14.5); Red Blood Cell (RBC) Count 3.46 mill/uL (4.70-6.10)
[2021-10-22] MEDS: Hyoscyamine Sulfate SL 0.125 mg Tablet SL SCH (06:28)
[2021-10-22] MEDS: Acetaminophen 500 MG TAB PO SCH ×4 (06:28→23:54)
[2021-10-22] MEDS: Saccharomyces boulardii 250 MG CAP PO SCH (09:33)
[2021-10-22] MEDS: Amoxicillin/Potassium Clav 875 MG TAB PO SCH ×2 (09:33→21:05)
[2021-10-22] MEDS: Apixaban 5 MG TAB PO SCH ×2 (09:34→21:05)
[2021-10-22] MEDS: Piperacillin/Tazobactam 3.375 GM in Sodium Chloride 0.9% 100 ML IVPB SCH (12:24)
[2021-10-22] MEDS: traMADol HCl 50 MG TAB PO PRN (23:55)
[2021-10-22] MEDS: Cyclobenzaprine 10 MG TAB PO PRN (23:58)
[2021-10-23] MEDS ORDERED: traMADol HCl 50 MG TAB PO PRN (03:55)
[2021-10-23] MEDS: Acetaminophen 500 MG TAB PO SCH ×3 (05:21→18:08)
[2021-10-23] MEDS: traMADol HCl 50 MG TAB PO SCH ×3 (05:21→16:42)
[2021-10-23] MEDS ORDERED: Tamsulosin HCl 0.4 MG CAP PO SCH (09:00)
[2021-10-23] MEDS: Amoxicillin/Potassium Clav 875 MG TAB PO SCH (09:17)
[2021-10-23] MEDS: Saccharomyces boulardii 250 MG CAP PO SCH (09:17)
[2021-10-23] MEDS: Apixaban 5 MG TAB PO SCH (09:18)
[2021-10-23 18:31] VITALS: BP 116/76; TEMP 98.5
== END 2021-10-23 17:45 | disposition home or self-care (01) | DRG 957 ==
LOC: EEVIPCON 09:52 → ERS 09:52 → SDC 10:52 → SURG A 18:44
PROVIDERS: ADMIT Surgery; ATTEND Surgery
PROC: 0T7B8DZ Dilation of Bladder with Intraluminal Device, Via Natural or Artificial Opening Endoscopic (ICD-10-PCS; principal; 2021-10-04)
PROC: 0TQB8ZZ Repair Bladder, Via Natural or Artificial Opening Endoscopic (ICD-10-PCS; 2021-10-04)
PROC: 0DQH0ZZ Repair Cecum, Open Approach (ICD-10-PCS; 2021-10-04)
PROC: 0DQB0ZZ Repair Ileum, Open Approach (ICD-10-PCS; 2021-10-04)
PROC: 0DQP0ZZ Repair Rectum, Open Approach (ICD-10-PCS; 2021-10-04)
PROC: 0D1N0Z4 Bypass Sigmoid Colon to Cutaneous, Open Approach (ICD-10-PCS; 2021-10-04)
PROC: BT14ZZZ Fluoroscopy of Kidneys, Ureters and Bladder (ICD-10-PCS; 2021-10-04)
PROC: 0T9B80Z Drainage of Bladder with Drainage Device, Via Natural or Artificial Opening Endoscopic (ICD-10-PCS; 2021-10-04)
PROC: 0DB80ZZ Excision of Small Intestine, Open Approach (ICD-10-PCS; 2021-10-09)
PROC: 0DW807Z Revision of Autologous Tissue Substitute in Small Intestine, Open Approach (ICD-10-PCS; 2021-10-09)
PROC: 0TP98DZ Removal of Intraluminal Device from Ureter, Via Natural or Artificial Opening Endoscopic (ICD-10-PCS; 2021-10-20)
PROC: BT14ZZZ Fluoroscopy of Kidneys, Ureters and Bladder (ICD-10-PCS; 2021-10-20)
PROC: 0T2BX0Z Change Drainage Device in Bladder, External Approach (ICD-10-PCS; 2021-10-20)
DX: S37.29XA Other injury of bladder, initial encounter (principal); K55.059 Acute (reversible) ischemia of intestine, part and extent unspecified; S36.598A Other injury of other part of colon, initial encounter; I81 Portal vein thrombosis; E87.2 Acidosis; S36.498A Other injury of other part of small intestine, initial encounter; S36.69XA Other injury of rectum, initial encounter; D62 Acute posthemorrhagic anemia; K56.7 Ileus, unspecified; K56.609 Unspecified intestinal obstruction, unspecified as to partial versus complete obstruction; T81.49XA Infection following a procedure, other surgical site, initial encounter; T81.30XA Disruption of wound, unspecified, initial encounter; L02.31 Cutaneous abscess of buttock; S31.823A Puncture wound without foreign body of left buttock, initial encounter; F17.210 Nicotine dependence, cigarettes, uncomplicated; E83.39 Other disorders of phosphorus metabolism; F14.10 Cocaine abuse, uncomplicated; F12.10 Cannabis abuse, uncomplicated; R31.0 Gross hematuria; E83.42 Hypomagnesemia; E87.6 Hypokalemia; Y83.8 Other surgical procedures as the cause of abnormal reaction of the patient, or of later complication, without mention of misadventure at the time of the procedure; W34.00XA Accidental discharge from unspecified firearms or gun, initial encounter
CPT/HCPCS: 36415; 51600; 51702; 74018; 74022; 74177; 74250; 74420; 74430; 80048; 80306; 80307; 81003; 81015; 82550; 82570; 83605; 83735; 84100; 85014; 85018; 85025; 85060; 85610; 85730; 86850; 86900; 86901; 88307; 90471; 90715; 96374; 96375; A4649; C1776; C2617; C9113; G0390; J1100; J1170; J1644; J1885; J2405; J2543; J2704; J3010; J3475; J3480; J3490; J7050; P9045; Q9963; Q9966; Q9967; U0002; U0003; U0005

== ENCOUNTER 2022-05-06 09:45 | Outpatient (CLI) | payer OTHER ==
[2022-05-06] MEDS ORDERED: Iopamidol 370 76% 100 ML VIAL ONE (14:12)
== END 2022-05-06 09:46 | disposition home or self-care (01) ==
LOC: CT 09:45
PROVIDERS: ATTEND Surgery
DX: I81 Portal vein thrombosis (principal); K55.059 Acute (reversible) ischemia of intestine, part and extent unspecified
CPT/HCPCS: 74177; Q9967